=== PATIENT | female | born 1990 | race Caucasian/White ===

== ENCOUNTER 2020-11-09 01:37 | Emergency (ER) | payer OTHER ==
[~2020-11-09] VITALS: Ht 160 cm; Wt 81.6 kg
[~2020-11-09 01:37] MED LIST: CALC600T56 PO; FERR325E14 PO; FOLI5CAP PO; PREN-385 PO
[2020-11-09 01:43] VITALS: BP 132/87
--- NOTE | 2020-11-09 01:47 | NUR ---
TO LOBBY A/W BED AMBULATORY
--- NOTE | 2020-11-09 02:00 | NUR ---
30/F, BIB SELF, CC: LOWER ABD PAIN 6/10, ON AND OFF, CRAMPING, PAIN IS FELT DURING URINATION. IS AT BEDSIDE, NO PAST MED HX, NKA, SAFETY MEASURES IN PLACE, NO DISTRESS.
--- NOTE | 2020-11-09 02:44 | NUR ---
SEEN AND EXAMINED BY KARMA
--- NOTE | 2020-11-09 03:01 | NUR ---
PT TAKEN TO BED 8
[2020-11-09 03:45] LABS: APPEARANCE,URINE CLEAR (CLEAR); BILIRUBIN,URINE NEGATIVE (NEGATIVE); BLOOD, URINE NEGATIVE (NEGATIVE); COLOR,URINE YELLOW (YELLOW); LEUKOCYTE ESTERASE ,URINE NEGATIVE (NEGATIVE); NITRITE, URINE NEGATIVE (NEGATIVE); UGLUCOSE NEGATIVE (NEGATIVE)
[2020-11-09] MEDS ORDERED: KETOROLAC 30 MG/ML VIAL IM ONE (04:35)
[2020-11-09 05:45] VITALS: BP 132/87
--- NOTE | 2020-11-09 05:45 | NUR ---
Patient discharged with v/s stable. Written and verbal after care instructions given and explained. Patient verbalized understanding. Ambulatory with steady gait. All questions addressed prior to discharge. Advised to follow up with PMD. Patient was accompanied by .
== END 2020-11-09 05:45 | disposition home or self-care (01) ==
LOC: MED 01:37
DX: R10.32 Left lower quadrant pain (principal); Z79.899 Other long term (current) drug therapy
CPT/HCPCS: 74176; 81003; 81025; 96372; 99284; J1885

== ENCOUNTER 2023-03-23 01:32 | Inpatient (IN) | payer OTHER ==
[~2023-03-23] VITALS: Ht 160 cm; Wt 91.6 kg
[2023-03-23 01:40] VITALS: BP 132/80; PULSE 80; RESP 18; TEMP 98.6
[2023-03-23] MEDS ORDERED: METHYLERGONOVINE 0.2 MG/ML AMP IM PRN ×2 (02:20→13:40)
[2023-03-23] MEDS ORDERED: LACTATED RINGERS 500 ML IV ONE (02:20)
[2023-03-23 02:55] LABS: BASOPHILS % (AUTO) 0.1 % (0.0-2.0); EOSINOPHILS % (AUTO) 0.2 % (0.0-4.0); HEMATOCRIT 36.3 % (36-48); HEMOGLOBIN 12.2 g/dL (12.0-16.0); LYMPHOCYTES % (AUTO) 11.4 % (20.5-51.1); MEAN CORPUSCULAR HEMOGLOBIN 28 pg (27-31); MEAN CORPUSCULAR HGB CONC 34 g/dL (33-37); MEAN CORPUSCULAR VOLUME 84.7 fL (80-94); MONOCYTES # (AUTO) 0.4 K/uL (0.8-1.0); MONOCYTES % (AUTO) 4.3 % (1.7-9.3); NEUTROPHILS # (AUTO) 7.6 K/uL (1.8-7.7); PLATELET COUNT (AUTO) 151 K/uL (140-450); RED BLOOD CELL COUNT(AUTO) 4.29 MIL/uL (4.20-5.40); RED CELL DISTRIBUTION WIDTH 14.1 % (11.6-13.7); WHITE BLOOD COUNT (AUTO) 9.1 K/uL (4.8-10.8)
[2023-03-23 02:56] LABS: APPEARANCE,URINE SL CLOUDY (CLEAR); BILIRUBIN,URINE NEGATIVE (NEGATIVE); BLOOD, URINE NEGATIVE (NEGATIVE); COLOR,URINE YELLOW (YELLOW); LEUKOCYTE ESTERASE ,URINE NEGATIVE (NEGATIVE); NITRITE, URINE NEGATIVE (NEGATIVE); PH,URINE 6.5 (5.0-9.0); PROTEIN,URINE NEGATIVE (NEGATIVE); UGLUCOSE NEGATIVE (NEGATIVE)
[2023-03-23 03:26] LABS: ALBUMIN 2.8 g/dL (3.4-5.0); ANION GAP 13.4 (8-16); CALCIUM 8.1 mg/dL (8.5-10.1); CARBON DIOXIDE 23.3 mmol/L (21-32); CREATININE 0.6 mg/dL (0.6-1.3); POTASSIUM 3.7 mmol/L (3.5-5.1); TOTAL BILIRUBIN 0.4 mg/dL (0.0-1.0); TOTAL PROTEIN, SERUM 6.4 g/dL (6.4-8.2)
[2023-03-23] MEDS: NALBUPHINE 10 MG/ML AMP IVP PRN ×2 (03:46→07:43)
[2023-03-23] MEDS: LACTATED RINGERS 1,000 ML IV SCH ×2 (03:47→09:22)
[2023-03-23] MEDS ORDERED: OXYTOCIN 20 UNITS in LACTATED RINGERS 1,000 ML IV SCH (04:15)
[2023-03-23] MEDS ORDERED: LIDOCAINE 1% 500 MG/ 50 ML VIAL INJ ONE (04:15)
[2023-03-23] MEDS ORDERED: OXYTOCIN 20 UNITS/LR PREMIX 1,000 ML IV ONE (07:41)
[2023-03-23] MEDS ORDERED: ROPIVACAINE 0.2%/NS PREMIX 200 ML EPI ONE (10:06)
[2023-03-23] MEDS ORDERED: BUPIVACAINE MPF 0.25% 10 ML VIAL INJ ONE (10:16)
[2023-03-23] MEDS ORDERED: TEMAZEPAM 15 MG CAP PO PRN (13:40)
[2023-03-23] MEDS ORDERED: OXYTOCIN 10 UNITS/ML VIAL IM PRN (13:40)
[2023-03-23] MEDS ORDERED: oxyCODONE/APAP 5/325 MG 1 TAB TAB PO PRN ×2 (13:40)
[2023-03-23] MEDS ORDERED: METHYLERGONOVINE 0.2 MG TAB PO PRN (13:40)
[2023-03-23] MEDS ORDERED: DOCUSATE SOD/SENNA 50/8.6 MG 1 TAB PO SCH (21:00)
[2023-03-24] MEDS ORDERED: DOCUSATE SOD/SENNA 50/8.6 MG 1 TAB PO SCH (02:25)
[2023-03-24] MEDS: IBUPROFEN 800 MG TAB PO PRN ×3 (03:38→20:49)
[2023-03-24 05:40] LABS: HEMOGLOBIN 11.5 g/dL (12.0-16.0)
[2023-03-25] MEDS: IBUPROFEN 800 MG TAB PO PRN (04:54)
== END 2023-03-25 10:35 | disposition home or self-care (01) | DRG 560 ==
LOC: MLD 01:32 → OBSVTOIN 02:20 → MFCC 16:30
PROVIDERS: ADMIT Obstetrics & Gynecology; ATTEND Obstetrics & Gynecology
PROC: 10D07Z6 Extraction of Products of Conception, Vacuum, Via Natural or Artificial Opening (ICD-10-PCS; principal; 2023-03-23)
PROC: 0HQ9XZZ Repair Perineum Skin, External Approach (ICD-10-PCS; 2023-03-23)
DX: O48.0 Post-term pregnancy (principal); Z37.0 Single live birth; O70.0 First degree perineal laceration during delivery; Z20.822 Contact with and (suspected) exposure to COVID-19; Z3A.40 40 weeks gestation of pregnancy
CPT/HCPCS: 36415; 51702; 59409; 80053; 81003; 85018; 85025; 86592; 86886; 86900; 86901; J2001; J2300; J2590; J2795; J3490; J7120